=== PATIENT | male | born 1990 | race Caucasian/White ===

== ENCOUNTER 2019-04-09 20:38 | Emergency (ER) | payer SELFPAY ==
[2019-04-09 20:53] VITALS: BP 131/90; PULSE 94; RESP 18; TEMP 36.7; O2SAT 98
[2019-04-09 21:32] LABS: Add Urine Microscopic? YES; Appearance Urine Cloudy (Clear); Bilirubin Urine Negative (Negative); Blood Urine Negative (Negative); Budding Yeast Urine Present /hpf; Color Urine Yellow (Yellow); Glucose Urine UA Negative (Negative); Ketones Urine Negative (Negative); Leukocyte Esterase Ur Negative LEU/UL (Negative); Mucus Urine Rare /lpf; Nitrate Urine Negative (Negative); Protein Urine Negative (Negative); RBC Urine 0-2 /hpf (0-2); Specific Grav Ur 1.017 (1.001-1.035); Urobilinogen Urine Negative mg/dL (<2.0); WBC Urine 0-3 /hpf
--- NOTE | 2019-04-09 22:18 | ED.MALEGU ---
HPI - Male Genitourinary General Chief complaint: Urogenital-Male Stated complaint: groin pain Time Seen by Provider: 04/09/19 21:06 Source: patient and RN notes reviewed Mode of arrival: ambulatory Limitations: no limitations History of Present Illness HPI Narrative: Pt is a 29 y/o male with a Hx of inguinal hernia, who presents to the ED with c/o lt groin pain starting 3 days ago. He notes that he is currently undergoing physical therapy, stating that he has been doing a significant amount of core exercises lately. Pt notes that he has had intermittent sharp pains radiating from his lt inguinal region into his lt lower ABD over the past several days. He states that his pain is aggravated with standing up. Pt reports nausea accompanying his pain, but denies any vomiting, dysuria, hematuria, fever, or chills. MD Complaint: other (Groin Pain) Onset (ago): day(s) (3) Duration: intermittent Location: left inguinal region Radiation: abdomen (lt lower ABD) Quality: sharp Exacerbating factors: movement (standing up) Context: lifting (recent core exercises) Associated symptoms: Reports nausea/vomiting (nausea) Related Data Home Medications Medication Instructions Recorded Confirmed awoyhohhq-ccofgdzr-ggdzqpg ala 1 tablet PO DAILY 04/09/19 04/09/19 [Biktarvy] crktdirl-tti-riqyg-vit K-lycop tablet PO 04/09/19 [Men's Multivitamin] ondansetron HCl [Zofran] 4 mg PO DAILY 04/09/19 04/09/19 oxycodone 5 mg PO Q6H PRN 04/09/19 04/09/19 pantoprazole 40 mg PO QAM 04/09/19 04/09/19 polyethylene glycol 3350 [Miralax] 17 g PO DAILY 04/09/19 04/09/19 sennosides-docusate sodium [Senna 1 tab-cap PO DAILY 04/09/19 04/09/19 with Docusate Sodium] Allergies Allergy/AdvReac Type Severity Reaction Status Date / Time clindamycin Allergy Unknown Rash Verified 04/09/19 20:48 hydromorphone Allergy Unknown Unknown Verified 04/09/19 20:48 morphine Allergy Unknown Unknown Verified 04/09/19 20:48 vancomycin Allergy Unknown Rash Verified 04/09/19 20:48 Review of Systems Review of Systems: All systems reviewed & are unremarkable except as noted in HPI and below Constitutional: Constitutional: Denies chills and Denies fever(s) Gastrointestinal: Gastrointestinal: Reports abdominal pain (lt groin pain radiating into lt lower ABD), Reports nausea and Denies vomiting Genitourinary: Genitourinary: Denies hematuria and Denies dysuria [facility] Past Medical History Medical History Inguinal hernia Surgical History Surgical History No significant past surgical history Social History Social History Smoking packs per day: 0.5 Smoking cigarettes per day: 10.0 Smoking status: Current every day smoker Gender identity (if verbalized by the patient): Male Exam Const: General: cooperative, healthy appearing, comfortable, no acute distress, well developed, alert and awake; No confusion Orientation/consciousness: oriented to person, oriented to place, oriented to time, patient oriented x3 and No confusion Limitations: no limitations HENMT: Head: normal to inspection, normocephalic and atraumatic Resp: Effort & Inspection: normal respiratory effort, able to speak in complete sentences, no respiratory distress and not tachypneic Auscultation: clear to auscultation bilaterally, no crackles, no rales, no rhonchi and no wheezes Cardio: Rate: regular rate Rhythm: regular rhythm GI: Inspection: normal to inspection GI Palp: No Hernia present (no inguinal hernia palpated) Auscultation: normal bowel sounds : General: Yes no CVA tenderness Testes: no testicular swelling (no significant testicular swelling), no testicular tenderness and other (no erythema around testicles) Back/Spine/Pelvis: Back: no CVA tenderness Skin: General skin exam: normal color, no rashes or lesions noted, elasticity normal and turg
== END 2019-04-09 23:00 | disposition home or self-care (01) ==
PROVIDERS: Emergency Provider Emergency Medicine
DX: S39.011A Strain of muscle, fascia and tendon of abdomen, initial encounter (principal); F17.200 Nicotine dependence, unspecified, uncomplicated; X50.9XXA Other and unspecified overexertion or strenuous movements or postures, initial encounter
CPT/HCPCS: 81001; 99283

== ENCOUNTER 2020-04-17 12:42 | Outpatient (CLI) | payer OTHER, SELFPAY ==
--- NOTE | 2020-04-17 | ECHO_ITS ---
Patient Info Name: Zackery Leach Age: 30 years : 1990 Gender: Male Ht: 72 in Wt: 170 lbs BSA: 1.98 m2 HR: 63 bpm BP: 110 / 58 mmHg Technical Quality: Fair Exam Date: 04/17/2020 1:26 PM Exam Location: [facility] Patient Status: Outpatient Admit Date: 04/17/2020 Staff Ordering Physician: Roni Fernandez MD [facility] Hospitalist: Mary Guzman RDCS Attending Provider: Roni Fernandez MD Referring Physician: Jim HATFIELD; Exam Type: CA echo doppler color flow Study Info Indications R94.31 - Abnormal electrocardiogram ECG EKG Complete two-dimensional, color flow and Doppler transthoracic echocardiogram is performed. Summary 1. Complete two-dimensional, color flow and Doppler transthoracic echocardiogram is performed. 2. Left ventricular chamber dimension is normal. 3. Left ventricular systolic function is normal, estimated at 55-60%. 4. The left ventricular diastolic function is normal. 5. E/e' 5 is not elevated. 6. Left atrial chamber dimension is mildly enlarged. 7. No pulmonary hypertension, estimated pulmonary arterial systolic pressure is 20 mmHg. Left Ventricle E/e' 5 is not elevated. Left ventricular chamber dimension is normal. Left ventricular systolic function is normal, estimated at 55-60%. The left ventricular diastolic function is normal. Right Ventricle Right ventricular chamber dimension is normal. Right ventricular systolic function is normal. Left Atria Left atrial chamber dimension is mildly enlarged. Right Atria Right atrial chamber dimension is normal. Aortic Valve The aortic valve is trileaflet. There is no aortic valve stenosis. There is no aortic valve regurgitation. Pulmonic Valve There is no pulmonic regurgitation. Mitral Valve There is no mitral valve stenosis. There is no mitral valve regurgitation. Tricuspid Valve There is no tricuspid valve regurgitation. No pulmonary hypertension, estimated pulmonary arterial systolic pressure is 20 mmHg. Pericardium/Pleural There is no pericardial effusion. Inferior Vena Cava Normal inferior vena cava with >50% collapse upon inspiration consistent with normal right atrial pressure, 5 mmHg. Aorta The aortic root size at the sinus of Valsalva is normal. Left Ventricular Outflow Tract Name Value Normal LVOT 2D LVOT Diameter 2.1 cm LVOT Doppler LVOT Peak Gradient 3 mmHg LVOT Mean Gradient 2 mmHg LVOT VTI 18 cm LVOT VTI/AV VTI Ratio 0.8 LVOT Stroke Volume 64 ml LVOT CO 4.0 l/min LVOT CI 2.0 l/min/m2 Pulmonic Valve Name Value Normal RVOT Doppler RVOT Peak Gradient 2 mmHg PV Doppler
== END 2020-04-17 12:43 | disposition home or self-care (01) ==
PROVIDERS: PCP Family Medicine; Visit Provider Internal Medicine
DX: R94.31 Abnormal electrocardiogram [ECG] [EKG] (principal)
CPT/HCPCS: 93306